=== PATIENT | male | born 1955 | race Two or more races ===

== ENCOUNTER → 2019-02-13 | Outpatient (CLI) | payer SELFPAY ==
[2019-02-14 17:58] LABS: Campylobacter Sp Not Detected (NOT DETECT)
[2019-02-14 17:59] LABS: Adenovirus F 40/41 Not Detected (NOT DETECT); Astrovirus Not Detected (NOT DETECT); Cryptosporidium Not Detected (NOT DETECT); Cyclospora Cayetanensis Not Detected (NOT DETECT); E. Coli O157 Not Detected (NOT DETECT); Entamoeba Histolytica Not Detected (NOT DETECT); Enteroaggregative E. coli-EAEC Not Detected (NOT DETECT); Enteropathogenic E. coli-EPEC Not Detected (NOT DETECT); Enterotoxigenic E. coli-ETEC Not Detected (NOT DETECT); Giardia Lamblia Not Detected (NOT DETECT); Norovirus GI/GII Not Detected (NOT DETECT); Plesiomonas Shigelloides Not Detected (NOT DETECT); Rotavirus A Not Detected (NOT DETECT); Salmonella Sp Not Detected (NOT DETECT); Sapovirus Not Detected (NOT DETECT); Shiga Toxin-prod E. coli-STEC Not Detected (NOT DETECT); Shigella/Enteroin E. coli-EIEC Not Detected (NOT DETECT); Vibrio Cholerae Not Detected (NOT DETECT); Vibrio Sp Not Detected (NOT DETECT); Yersinia Enterocolitica Not Detected (NOT DETECT)
== END | disposition home or self-care (01) ==
LOC: LAB 08:00 → LAB SHORT 08:00
PROVIDERS: Emergency Medicine
DX: R19.7 Diarrhea, unspecified (principal)
CPT/HCPCS: 0097U

== ENCOUNTER 2019-03-25 15:39 | Emergency (ER) | payer BC ==
[~2019-03-25] VITALS: Ht 175.3 cm; Wt 89.4 kg
[2019-03-25] MEDS ORDERED: METF500 PO (15:46)
[2019-03-25] MEDS ORDERED: GABA800 PO (15:46)
[2019-03-25] MEDS ORDERED: WARF5 PO (15:47)
[2019-03-25] MEDS ORDERED: WARF7.5 PO (15:47)
[2019-03-25] MEDS ORDERED: Esgic Tablet1 EACH (15:48)
[2019-03-25] MEDS ORDERED: Prevacid Soluta30 MG PO (15:48)
[2019-03-25] MEDS ORDERED: PRAM.5 PO (15:48)
[2019-03-25] MEDS ORDERED: ATOR10 PO (15:48)
[2019-03-25] MEDS ORDERED: GEMF600 PO (15:48)
[2019-03-25] MEDS ORDERED: AMLO10 PO (15:48)
[2019-03-25] MEDS ORDERED: BUTONI (15:49)
[2019-03-25 16:23] LABS: International Normalized Ratio 2.21; Prothrombin Time Results 21.8 Sec (9.7-11.5)
== END 2019-03-25 18:23 | disposition home or self-care (01) ==
LOC: ER 15:39
PROVIDERS: Physician Assistant
DX: S61.211A Laceration without foreign body of left index finger without damage to nail, initial encounter (principal); I10 Essential (primary) hypertension; E11.9 Type 2 diabetes mellitus without complications; K21.9 Gastro-esophageal reflux disease without esophagitis; F17.200 Nicotine dependence, unspecified, uncomplicated; Z86.711 Personal history of pulmonary embolism; Z88.1 Allergy status to other antibiotic agents; Z79.899 Other long term (current) drug therapy; Z79.84 Long term (current) use of oral hypoglycemic drugs; Z79.01 Long term (current) use of anticoagulants; W27.0XXA Contact with workbench tool, initial encounter
CPT/HCPCS: 12001; 36415; 73140; 85610; 99283-25

== ENCOUNTER 2019-05-12 12:42 | Emergency (ER) | payer MEDICARE ==
[~2019-05-12] VITALS: Ht 175.3 cm; Wt 88.0 kg
[~2019-05-12 12:42] MED LIST: AMLO10 PO; ATOR20 PO; BUTONI; Esgic Tablet1 EACH PO; GABA800 PO; GEMF600 PO; METF500 PO; Mirapex1 MG PO; Prevacid Soluta30 MG PO; WARF5 PO; WARF7.5 PO
[2019-05-12 13:01] LABS: BASOPHILS ABSOLUTE AUTO 0.05 K/mm3 (0.00-0.23); BASOPHILS PERCENT AUTO 1 % (0-2); EOSINOPHILS ABSOLUTE AUTO 0.18 K/mm3 (0.00-0.68); EOSINOPHILS PERCENT AUTO 3 % (0-6); Hematocrit 47.1 % (37.0-53.0); Hemoglobin 16.1 g/dL (13.5-17.5); IMMATURE GRAN ABSOLUTE AUTO 0.02 K/mm3 (0.00-0.10); IMMATURE GRAN PERCENT AUTO 0 % (0-1); LYMPHOCYTES ABSOLUTE AUTO 1.76 K/mm3 (0.84-5.20); LYMPHOCYTES PERCENT AUTO 27 % (21-46); MONOCYTES ABSOLUTE AUTO 0.51 K/mm3 (0.16-1.47); MONOCYTES PERCENT AUTO 8 % (4-13); Mean Corpuscular HGB 33.8 pg (26.0-34.0); Mean Corpuscular HGB Conc 34.2 g/dL (31.5-36.5); Mean Corpuscular Volume 99 fL (80-100); Mean Platelet Volume 9.8 fL (9.1-12.4); NEUTROPHILS ABSOLUTE AUTO 3.97 K/mm3 (1.96-9.15); NEUTROPHILS PERCENT AUTO 61 % (41-73); Platelet Count 190 K/mm3 (150-400); RDW Coefficient Variation 13.2 % (11.7-14.2); RDW Standard Deviation 48.5 fL (35.1-46.3); Red Blood Cell Count 4.76 M/mm3 (4.30-5.90); White Blood Cell Count 6.49 K/mm3 (4.00-11.30)
[2019-05-12 13:15] LABS: Alanine Aminotransfer (ALT/SGP 45 U/L (12-78); Albumin, Blood 3.5 g/dL (3.4-5.0); Albumin/Globulin Ratio 0.9 (0.8-1.8); Alk Phos 131 U/L (50-136); Anion Gap 8 mmol/L (6-16); Aspartate Aminotrans (AST/SGOT 25 U/L (12-37); Bilirubin, Total 0.3 mg/dL (0.1-1.0); Blood Urea Nitrogen 15 mg/dL (8-24); CO2, Blood 24 mmol/L (21-32); Calcium, Blood 8.7 mg/dL (8.5-10.1); Chloride, Blood 111 mmol/L (98-108); Creatinine, Blood 0.88 mg/dL (0.60-1.20); Glomerular Filtration Rate >60 (60-); Glucose, Blood 149 mg/dL (70-99); Potassium, Blood 3.8 mmol/L (3.5-5.5); Sodium, Blood 143 mmol/L (136-145); Total Protein, Blood 7.5 g/dL (6.4-8.2); Troponin I <0.015 ng/mL (0.000-0.040)
[2019-05-16] MEDS ORDERED: PRAMIPEXOLE DIHY1 M1 PO (13:55)
[2019-05-18] MEDS ORDERED: BASAGLAR K100 UNIT/1 SC (12:56)
[2019-05-18] MEDS ORDERED: LOSA25 PO (12:57)
== END 2019-05-12 17:25 | disposition home or self-care (01) ==
LOC: ER 12:42
PROVIDERS: Emergency Medicine
DX: R56.9 Unspecified convulsions (principal); E11.9 Type 2 diabetes mellitus without complications; Z88.1 Allergy status to other antibiotic agents; Z79.899 Other long term (current) drug therapy; Z87.891 Personal history of nicotine dependence; Z86.711 Personal history of pulmonary embolism
CPT/HCPCS: 36415; 70450; 71046; 80053; 84484; 85025; 93005; 93010; 99285-25

== ENCOUNTER → 2020-10-16 | Outpatient (CLI) | payer MEDICARE ==
[~2020-10-16] MED LIST changes: +BASAGLAR K100 UNIT/1 SC; +LOSA25 PO; +PRAMIPEXOLE DIHY1 M1 PO
== END | disposition home or self-care (01) ==
LOC: LAB SHORT 12:00
DX: N40.1 Benign prostatic hyperplasia with lower urinary tract symptoms (principal)
CPT/HCPCS: 87086

== ENCOUNTER 2020-12-24 08:57 | Emergency (ER) | payer MEDICARE ==
[~2020-12-24] VITALS: Ht 175.3 cm; Wt 88.0 kg
[2020-12-24] MEDS ORDERED: TAMS.4ER PO (11:02)
[2020-12-24] MEDS ORDERED: AMOX875 PO (11:02)
[2020-12-24] MEDS ORDERED: GABA400 PO (11:02)
[2020-12-24] MEDS ORDERED: OMEP20ER PO (11:02)
[2020-12-24] MEDS ORDERED: METF500 PO (11:03)
[2020-12-24] MEDS ORDERED: GEMF600 PO (11:03)
[2020-12-24] MEDS ORDERED: ATOR20 (11:03)
[2020-12-24] MEDS ORDERED: AMLO10 PO (11:04)
[2020-12-24] MEDS ORDERED: ZEBUTAL 50-3251 EAC1 (11:04)
[2020-12-24] MEDS ORDERED: PRAM.125 PO (11:04)
[2020-12-24] MEDS ORDERED: TRULICITY1.5 MG/0.1 (11:05)
[2020-12-24] MEDS ORDERED: LANS30EC PO (11:05)
[2020-12-24] MEDS ORDERED: BUTONI INH (11:05)
[2020-12-24] MEDS ORDERED: XARELTO20 MG PO (11:06)
[2020-12-24] MEDS ORDERED: INSULANI SC (11:06)
[2020-12-24 11:35] LABS: BASOPHILS ABSOLUTE AUTO 0.03 K/mm3 (0.00-0.23); BASOPHILS PERCENT AUTO 1 % (0-2); EOSINOPHILS ABSOLUTE AUTO 0.11 K/mm3 (0.00-0.68); EOSINOPHILS PERCENT AUTO 2 % (0-6); Hematocrit 41.2 % (37.0-53.0); Hemoglobin 14.1 g/dL (13.5-17.5); IMMATURE GRAN ABSOLUTE AUTO 0.02 K/mm3 (0.00-0.10); IMMATURE GRAN PERCENT AUTO 0 % (0-1); LYMPHOCYTES ABSOLUTE AUTO 1.43 K/mm3 (0.84-5.20); LYMPHOCYTES PERCENT AUTO 27 % (21-46); MONOCYTES ABSOLUTE AUTO 0.33 K/mm3 (0.16-1.47); MONOCYTES PERCENT AUTO 6 % (4-13); Mean Corpuscular HGB 32.3 pg (26.0-34.0); Mean Corpuscular HGB Conc 34.2 g/dL (31.5-36.5); Mean Corpuscular Volume 95 fL (80-100); Mean Platelet Volume 10.8 fL (9.1-12.4); NEUTROPHILS ABSOLUTE AUTO 3.39 K/mm3 (1.96-9.15); NEUTROPHILS PERCENT AUTO 64 % (41-73); Platelet Count 131 K/mm3 (150-400); RDW Coefficient Variation 12.7 % (11.7-14.2); RDW Standard Deviation 44.4 fL (35.1-46.3); Red Blood Cell Count 4.36 M/mm3 (4.30-5.90); White Blood Cell Count 5.31 K/mm3 (4.00-11.30)
[2020-12-24 11:44] LABS: Alanine Aminotransfer (ALT/SGP 182 U/L (12-78); Albumin, Blood 3.1 g/dL (3.4-5.0); Albumin/Globulin Ratio 0.7 (0.8-1.8); Alk Phos 144 U/L (50-136); Anion Gap 9 mmol/L (6-16); Aspartate Aminotrans (AST/SGOT 131 U/L (12-37); Beta-hydroxybutyrate 4.9 mg/dL (0.2-2.8); Bilirubin, Total 0.7 mg/dL (0.1-1.0); Blood Urea Nitrogen 18 mg/dL (8-24); Bun/Creatinine Ratio 18.3 (12.0-20.0); CO2, Blood 22 mmol/L (21-32); Calcium, Blood 8.9 mg/dL (8.5-10.1); Chloride, Blood 102 mmol/L (98-108); Creatinine, Blood 0.99 mg/dL (0.60-1.20); Globulin, Blood 4.5 g/dL (2.2-4.0); Glomerular Filtration Rate >60 (60-); Glucose, Blood 429 mg/dL (70-99); Sodium, Blood 133 mmol/L (136-145); Total Protein, Blood 7.6 g/dL (6.4-8.2)
[2020-12-24 12:52] LABS: Source, Urine Clean Catch
[2020-12-24 13:12] LABS: Appearance, Urine Clear (Clear); Bilirubin, Urine Neg (Neg); Blood, Urine Neg (Neg); Color, Urine Yellow (P-Yellow); Glucose Qualitative, Urine 4+ (Neg); Ketones, Urine Neg (Neg); Leukocyte Esterase, Urine Neg (Neg); Nitrite, Urine Neg (Neg); Protein, Urine Neg (Neg); Specific Gravity, Urine 1.015 (1.003-1.022); Urobilinogen, Urine NORM (Normal)
== END 2020-12-24 13:30 | disposition home or self-care (01) ==
LOC: ER 08:57
PROVIDERS: Physician Assistant
DX: E11.65 Type 2 diabetes mellitus with hyperglycemia (principal); I10 Essential (primary) hypertension; F17.200 Nicotine dependence, unspecified, uncomplicated; K21.9 Gastro-esophageal reflux disease without esophagitis; Z79.4 Long term (current) use of insulin; Z79.899 Other long term (current) drug therapy; Z88.1 Allergy status to other antibiotic agents
CPT/HCPCS: 80053; 81003; 82010; 82947; 85025; 93005; 93010; 96360; 99284-25; J1815; J7030

== ENCOUNTER 2021-05-11 07:42 | Emergency (ER) | payer MEDICARE ==
[~2021-05-11] VITALS: Ht 175.3 cm; Wt 77.1 kg
[~2021-05-11 07:42] MED LIST changes: +AMOX875 PO; +ATOR20; +BUTONI INH; +GABA400 PO; +INSULANI SC; +LANS30EC PO; +OMEP20ER PO; +PRAM.125 PO; +TAMS.4ER PO; +TRULICITY1.5 MG/0.1; +XARELTO20 MG PO; +ZEBUTAL 50-3251 EAC1
[2021-05-11] MEDS ORDERED: HUMALOG KW100 UNIT/1 (07:58)
[2021-05-11] MEDS ORDERED: OZEMPIC0.25 MG/0. (08:00)
[2021-05-11 08:10] LABS: BASOPHILS ABSOLUTE AUTO 0.04 K/mm3 (0.00-0.23); BASOPHILS PERCENT AUTO 1 % (0-2); EOSINOPHILS ABSOLUTE AUTO 0.03 K/mm3 (0.00-0.68); EOSINOPHILS PERCENT AUTO 1 % (0-6); Hematocrit 41.3 % (37.0-53.0); IMMATURE GRAN ABSOLUTE AUTO 0.04 K/mm3 (0.00-0.10); IMMATURE GRAN PERCENT AUTO 1 % (0-1); LYMPHOCYTES ABSOLUTE AUTO 0.75 K/mm3 (0.84-5.20); LYMPHOCYTES PERCENT AUTO 12 % (21-46); MONOCYTES ABSOLUTE AUTO 0.46 K/mm3 (0.16-1.47); MONOCYTES PERCENT AUTO 7 % (4-13); Mean Corpuscular HGB 32.5 pg (26.0-34.0); Mean Corpuscular HGB Conc 33.9 g/dL (31.5-36.5); Mean Corpuscular Volume 96 fL (80-100); Mean Platelet Volume 10.3 fL (9.1-12.4); NEUTROPHILS PERCENT AUTO 80 % (41-73); Platelet Count 160 K/mm3 (150-400); RDW Coefficient Variation 13.2 % (11.7-14.2); RDW Standard Deviation 47.2 fL (35.1-46.3); Red Blood Cell Count 4.31 M/mm3 (4.30-5.90); White Blood Cell Count 6.52 K/mm3 (4.00-11.30)
[2021-05-11 08:32] LABS: Alanine Aminotransfer (ALT/SGP 89 U/L (12-78); Albumin, Blood 2.6 g/dL (3.4-5.0); Albumin/Globulin Ratio 0.4 (0.8-1.8); Alk Phos 112 U/L (50-136); Anion Gap 8 mmol/L (6-16); Aspartate Aminotrans (AST/SGOT 90 U/L (12-37); Bilirubin, Total 1.3 mg/dL (0.1-1.0); Blood Urea Nitrogen 22 mg/dL (8-24); Bun/Creatinine Ratio 18.3 (12.0-20.0); CO2, Blood 25 mmol/L (21-32); Calcium, Blood 9.3 mg/dL (8.5-10.1); Chloride, Blood 101 mmol/L (98-108); Globulin, Blood 6.6 g/dL (2.2-4.0); Glomerular Filtration Rate >60 (60-); Glucose, Blood 159 mg/dL (70-99); Potassium, Blood 3.8 mmol/L (3.5-5.5); Sodium, Blood 134 mmol/L (136-145); Total Protein, Blood 9.2 g/dL (6.4-8.2)
[2021-05-11 10:33] LABS: Source, Urine Clean Catch
[2021-05-11 10:36] LABS: Appearance, Urine Clear (Clear); Bilirubin, Urine Neg (Neg); Blood, Urine 2+ (Neg); Color, Urine Yellow (P-Yellow); Glucose Qualitative, Urine Neg (Neg); Ketones, Urine Neg (Neg); Leukocyte Esterase, Urine 1+ (Neg); Nitrite, Urine Neg (Neg); Protein, Urine 2+ (Neg); Urobilinogen, Urine NORM (Normal)
[2021-05-11] MEDS ORDERED: REGLAN PO (10:45)
[2021-05-11 10:49] LABS: Bacteria Few /hpf; Squamous Epithelial Cells Rare /hpf (Few)
== END 2021-05-11 11:00 | disposition home or self-care (01) ==
LOC: ER 07:42
PROVIDERS: Emergency Medicine
DX: R11.2 Nausea with vomiting, unspecified (principal); E11.43 Type 2 diabetes mellitus with diabetic autonomic (poly)neuropathy; K31.84 Gastroparesis; I10 Essential (primary) hypertension; K21.9 Gastro-esophageal reflux disease without esophagitis; Z88.1 Allergy status to other antibiotic agents; Z79.899 Other long term (current) drug therapy; Z79.4 Long term (current) use of insulin; Z79.01 Long term (current) use of anticoagulants; Z86.711 Personal history of pulmonary embolism; Z87.891 Personal history of nicotine dependence
CPT/HCPCS: 36415; 80053; 81001; 82947; 83690; 85025; 87077; 87086; 87147; 87186; J1200; J2765; J7030

== ENCOUNTER 2021-05-26 18:00 | Inpatient (IN) | payer MEDICARE ==
[~2021-05-26] VITALS: Ht 175.3 cm; Wt 83.5 kg
[~2021-05-26 18:00] MED LIST changes: -ATOR20; -BUTONI INH; +HUMALOG KW100 UNIT/1; +HYDR1TAB94 PO; +METF500C PO; +Monodox100 MG PO; +NORTRIPTYLINE H10 M1 PO; +ONDA4ODT MM; +OZEMPIC0.25 MG/0. SC; +PHENERGAN25 MG PR; -PRAM.125 PO; +REGLAN PO
[2021-05-26 20:31] LABS: Source, Urine Clean Catch
[2021-05-26 20:33] LABS: Bilirubin, Urine Neg (Neg); Blood, Urine 5+ (Neg); Glucose Qualitative, Urine 2+ (Neg); Ketones, Urine Neg (Neg); Leukocyte Esterase, Urine Neg (Neg); Nitrite, Urine Neg (Neg); Protein, Urine 1+ (Neg); Urobilinogen, Urine NORM (Normal)
[2021-05-26 20:44] LABS: Appearance, Urine Hazy (Clear); Bacteria Not Seen /hpf; Color, Urine Yellow (P-Yellow); Red Blood Cells, Urine TNTC /hpf (0-2); Squamous Epithelial Cells Rare /hpf (Few); White Blood Cells, Urine Rare /hpf (0-5)
[2021-05-26 21:55] LABS: U Amphetamine Screen Not Detected; U Barbituate Screen DETECTED; U Benzodiazapine Screen Not Detected; U Buprenorphine Screen Not Detected; U Cannabinoids Screen Not Detected; U Cocaine Screen Not Detected; U Methadone Screen Not Detected; U Methamphetamine Screen Not Detected; U Opiates Screen DETECTED; U Oxycodone Screen Not Detected; U Phencyclidine Screen Not Detected; U Propoxyphene Screen Not Detected
[2021-05-26 22:32] LABS: CPK Creatine Kinase 36 U/L (39-308); Creatine Kinase MB 1.1 ng/mL (0.0-3.6); Creatine Kinase MB Index 3.1 (0.0-4.0); Troponin I <0.015 ng/mL (0.000-0.040)
[2021-05-27 04:53] LABS: BASOPHILS ABSOLUTE AUTO 0.03 K/mm3 (0.00-0.23); BASOPHILS PERCENT AUTO 1 % (0-2); EOSINOPHILS ABSOLUTE AUTO 0.07 K/mm3 (0.00-0.68); EOSINOPHILS PERCENT AUTO 1 % (0-6); Hematocrit 28.2 % (37.0-53.0); IMMATURE GRAN ABSOLUTE AUTO 0.03 K/mm3 (0.00-0.10); IMMATURE GRAN PERCENT AUTO 1 % (0-1); LYMPHOCYTES ABSOLUTE AUTO 0.98 K/mm3 (0.84-5.20); LYMPHOCYTES PERCENT AUTO 15 % (21-46); MONOCYTES ABSOLUTE AUTO 0.43 K/mm3 (0.16-1.47); MONOCYTES PERCENT AUTO 7 % (4-13); Mean Corpuscular HGB 31.7 pg (26.0-34.0); Mean Corpuscular HGB Conc 31.9 g/dL (31.5-36.5); Mean Corpuscular Volume 99 fL (80-100); Mean Platelet Volume 9.9 fL (9.1-12.4); NEUTROPHILS ABSOLUTE AUTO 4.81 K/mm3 (1.96-9.15); NEUTROPHILS PERCENT AUTO 76 % (41-73); Platelet Count 239 K/mm3 (150-400); RDW Coefficient Variation 14.1 % (11.7-14.2); RDW Standard Deviation 51.1 fL (35.1-46.3); Red Blood Cell Count 2.84 M/mm3 (4.30-5.90); White Blood Cell Count 6.35 K/mm3 (4.00-11.30)
[2021-05-27 05:22] LABS: Anion Gap 6 mmol/L (6-16); Blood Urea Nitrogen 16 mg/dL (8-24); Bun/Creatinine Ratio 15.8 (12.0-20.0); CO2, Blood 25 mmol/L (21-32); Calcium, Blood 8.4 mg/dL (8.5-10.1); Chloride, Blood 101 mmol/L (98-108); Creatinine, Blood 1.01 mg/dL (0.60-1.20); Glomerular Filtration Rate >60 (60-); Glucose, Blood 232 mg/dL (70-99); Potassium, Blood 3.9 mmol/L (3.5-5.5); Sodium, Blood 132 mmol/L (136-145)
--- NOTE | 2021-05-27 06:31 | NUR ---
THIS VISIT C/O RIGHT SIDED CHEST, SHOULDER AND CLAVICLE PAIN FOR 6 DAYS. WENT TO PCP TODAY AND WAS TOLD TO COME HERE "FOR A SERIOUS INFECTION". HX: FRACTURE RIGHT CLAVICLE, N V D (ALL 3 FOR 1 YEAR), GERD, TBI, HTN, SEIZURES, DM2 AND GASTROPARESIS. 3 SPINAL FUSIONS IN PAST. BLE DISCOLORATION LIGHT BROWN. CT CHEST SHOWED 4.2CM FLUID AT RIGHT PEC WITH CONCERNS FOR INFECTION. HAS ABSCESS DRAINAGE AND BIOPSY SCHEDULED FOR TODAY.
--- NOTE | 2021-05-27 10:40 | NUR ---
RADHA saba handoff of patient care from RADHA Mancia this morning at 0645. Patient was alert and orient, lying in bed but not asleep. Patient appeared in no distress.
[2021-05-27] MEDS ORDERED: PRAMIPEXOLE DIHY1 M1 PO ×2 (12:18)
[2021-05-27] MEDS ORDERED: LOSARTAN POTASS25 M2 PO ×2 (12:18)
[2021-05-27 12:24] LABS: Anti-Xa UFH, PHA Monitoring <0.10 IU/mL; International Normalized Ratio 1.24; Prothrombin Time Results 12.8 Sec (9.7-11.5)
[2021-05-27 15:39] LABS: Protein, Body Fluid 5.3 g/dL
[2021-05-27 17:03] LABS: Appearance, Body Fluid Turbid (Clear)
[2021-05-27 17:04] LABS: Automated BF WBC Count >200.000 K/mm3 (0-999); Body Fluid WBC Count 200001 /mm3 (0-999)
[2021-05-27 17:08] LABS: RBC Count, Body Fluid 261000 /mm3 (0-0)
[2021-05-27 17:09] LABS: Automated BF RBC Count 0.261 M/mm3 (0-0)
[2021-05-27 17:52] LABS: Total Cell Count, Body Fluid 100
--- NOTE | 2021-05-27 18:36 | NUR ---
Patient was alert and orient. He was able to express his needs. He was admitted for abscess of the Right clavicle/shoulder. Patient has been having N/V/D for over quite some time but just noticed the abscess over a week ago. Patient had an I&D this afternoon, dressing intact, and a drain in place. Patient had a shower, his temp was up to 102 and he did recv Tylenol po prn. Patient continued on ABX and now has Heparin drip to replace Xarelto. Cont to monitor
[2021-05-27 23:42] LABS: Vancomycin, Trough 13.5 ug/mL (5.0-10.0)
--- NOTE | 2021-05-27 23:54 | NUR ---
INCREASED HEPARIN GTT TO 20 UN/KG/HR (33.2 ML/HR) PER PHARMACY MANAGEMENT.
--- NOTE | 2021-05-28 08:04 | NUR ---
SUMMARY: PT A/OX4, IS PLEASANT AND COOPERATIVE W/CARE AND CALLS APPROPRIATELY TO SPECIFY NEED. HE'S SBA OOB AND USES URINAL INDEPENDENTLY. STAFF UNABLE TO COLLECT STOOL SPECIMEN D/T NO BM THIS SHIFT. DRAIN PRESENT TO R.CW S/P I&D OF R.PECTORAL ABSCESS, 4O MLS PINK/BROWN OUTPUT THIS SHIFT. IV ABX RECIEVED T/O NOCTE THEN IV SL. PAIN RADIATES FROM CHEST TO BACK AND OCC INTO HEAD/NECK, CHRONIC COUGH EXACERBATES IT. TORADOL AND TYLENOL RECIEVED PRN T/O NOCTE FOR TOLERABLE RELIEF. HE ALSO HAD LOW GRADE TEMP>100 W/TYLENOL EFFECTIVE AT REDUCING IT. PT BREATHS SHALLOW AND TACHY AT TIMES R/T PAIN BUT DENIES SOB OR DSYPNEA, SPO2 WNL. HEPARIN GTT BEING MANAGED BY PHARMACY FOR HX PE, RATE INCREASED TO 20 UN/KG/HR (33.2 ML/HR) THIS SHIFT. NO ACUTE CHANGES, VSS AND AFEBRILE. REPORT PROVIDED TO DAY RN.
[2021-05-28 13:38] LABS: International Normalized Ratio 1.26
--- NOTE | 2021-05-28 17:06 | NUR ---
PT IS A/OX3, PLEASANT AND COOPERATIVE. THE PT IS UP WITH MINIMAL ASSIST TO THE BATHROOM. THE PT REPORTED HAVEING A LARGE BM TODAY. THE ORDERED STOOL SAMPLE WAS NOT COLLECTED. THE PT REPORTED THAT THERE WAS NO BLOOD SEEN WITH THE BM. THE PT APPEARS TO BE BREATHING EASILY ON RA AT THIS TIME. THE PT WAS MEDICATED FOR PAIN X2 SO FAR TODAY. PTS RIGHT SHOULDER DRAIN HAS A SMALL AMOUNT OF DARK BROWN DRAINAGE TODAY. CALL LIGHT IN REACH. WILL CONTINUE TO MONITOR AND ASSESS FOR CHANGES
--- NOTE | 2021-05-28 19:24 | NUR ---
1730 PT REPORTED SHAKES AND CHILLS TEMP TAKEN WITH ORALY 101.4, ICE PACKS PLACED UNDER PATIENTS AXILLARIES AND BEHIND THE NECK. TYLENOL GIVEN
--- NOTE | 2021-05-29 06:30 | NUR ---
SHIFT SUMMARY PATIENT ALERT AND ORIENTED. MEDICATED PER EMAR FOR PAIN. NO ACUTE ISSUES NOTED OVERNIGHT. BED IN LOWEST POSITION WITH WHEELS LOCKED. CALL LIGHT WITHIN REACH. REPORT GIVEN TO ONCOMING RN.
[2021-05-29 09:55] LABS: Stool Occult Bld Immuno 1 Negative (NEGATIVE)
[2021-05-29 11:07] LABS: Vancomycin, Trough 18.3 ug/mL (5.0-10.0)
--- NOTE | 2021-05-29 11:11 | NUR ---
NOTIFIED PHARMACIST SARAHO TROUGH IN COMPUTER
--- NOTE | 2021-05-29 16:35 | NUR ---
Initial Interview with [facility] Community Threader 1. Who did you speak with? Spoke with patient 2. What is the patient's prior level of functions? Patient lives independently with daughter Jany and son-in-law. They live on the same property but in separate dwellings. Patient is able to complete ADL's without assistance. Had some knee/joint problems in the past, but still able to move independently without assistance. There are no stairs in the home. Patient had an accident at work back in the 90s and was placed on SSI. 3. 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 Family assists with transportation needs. 4. Does patient still drive? No 5. POA/PCP/NOK: NOK: Jayn Daughter [phone]/PCP [facility] CHRISTOPHER Wheat 6. Discharge goals: Home with antibiotics po/patient has no preference for home health if needed. -Medication Management: self-management -Preferred Pharmacy: [facility] -Housekeeping need: patient performs cooking and cleaning at his residence 7. List barriers to discharge: None known at this time 8. Discharge Plan: Home/TBD 9. PCP Follow up appointment: Will be scheduled within seven calendar days of discharge 10. Other Notes: patient is a and has no service connected disability, but encouraged to apply for benefits. Patient served for three years.
--- NOTE | 2021-05-29 16:44 | NUR ---
ALERT. ORIENTED. HEPARIN INFUSING IN POWERGLIDE LEFT UPPER ARM HAS IVC FILTER AND HX OF P.E. OFF P.O. MEDS DUE TO I&D ABSCESS RT SHLDER WITH DRAIN PLACED. RT F.A APPEARS SLIGHTLY SWOLLEN. IV RT SHLDR NOT USED. MEDICATED FOR PAIN WITH PATIENT ABLE TO SLEEP. UNLABORED RESPIRATIONS. AMBULATORY IN ROOM WITH STANDBY ASSIST. PINKISH CLOUDY DRAINAGE FROM DRAIN. TM
--- NOTE | 2021-05-29 18:35 | NUR ---
TALKED TO ABOUT ABSCESS DRAINAGE ONLY 20 ML THIS SHIFT. RT ARM LOOKS LITTLE SWOLLEN- LOOKS LITTLE LARGER MORGAN LEFT. NOW PATIENT HAS CRAMPS RT HAND WHERE RT THUMB IS CURLED UP AND HE CAN NOT STRAIGHTEN IT. CAN ORDER CYCLOBENZAPRINE 5 MG QD PRN. NO FEVERS. MD TO MAYBE ORDER RADIOLOGY TOMORROW WHEN HE REEVALS.
--- NOTE | 2021-05-30 15:15 | NUR ---
PT APPEARS SHAKEY PT APPEARS SHAKEY AND IS GRASPING THROAT WITH BOTH HANDS. BLOOD GLUCOSE AND VITAL SIGNS ARE ASSESSED. 2 L NC O2 APPLIED FOR COMFORT. DR. MENDEZ CONTACTED AND ORDERED PRN ATIVAN AND PRN ALBUTEROL. 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 PLAN TO MEDICATE PER EMAR AND CONTINUE TO MONITOR.
[2021-05-30 15:34] LABS: Hematocrit 27.6 % (37.0-53.0); Hemoglobin 8.8 g/dL (13.5-17.5); Platelet Count 295 K/mm3 (150-400)
--- NOTE | 2021-05-30 17:35 | NUR ---
SHIFT SUMMARY PT A&O X4 AND IN PLEASENT MOOD T/O SHIFT. PT DID HAVE SHAKING EPISODE DURING SHIFT, PLEASE SEE NOTE. PT MEDICATED PER EMAR FOR ANXIETY, PAIN, AND CONSTIPATION. HEPERIN DRIP CURRENTLY RUNNING. R UPPER CHEST DRAIN PRODUCING KHALIF COLORED FLUID. CALL LIGHT W/IN REACH.
[2021-05-30 23:05] LABS: Vancomycin, Trough 21.9 ug/mL (5.0-10.0)
[2021-05-31 04:55] LABS: Hematocrit 25.8 % (37.0-53.0); Hemoglobin 8.3 g/dL (13.5-17.5); Mean Platelet Volume 9.8 fL (9.1-12.4); Platelet Count 289 K/mm3 (150-400)
--- NOTE | 2021-05-31 06:08 | NUR ---
SHIFT SUMMARY: PT IS A/OX4. HEP GTT IS RUNNING WITH NO NEW CHANGES. THE PT'S VANCO TROUGH WAS 21.9; PHARMACY WAS NOTIFIED AND VANCO WAS ADJUSTED. PT HAS BEEN INDEPENDENT IN THE ROOM, BUT WILL CALL FOR NEEDS. DRAIN TO RT CX WALL IS PUTTING OUT SMALL AMOUNTS OF FLUID. PT DID HAVE A SMALL BM THIS NOC SHIFT WELL. WE'LL CONTINUE TO MONITOR THE REMAINDER OF THE SHIFT.
--- NOTE | 2021-05-31 16:12 | NUR ---
SHIFT SUMMARY PT A/O X4; PLEASANT AND COOPERATIVE WITH CARE. POD #4 FOR I&D OF R CHEST WALL ABSCESS AND URESIL DRAIN PLACEMENT. DRAIN PUTTING OUT SMALL AMOUNT OF SS FLUID. HEPARIN GT RUNNING WITH NO CHANGES THIS SHIFT. NO C/O PAIN AND THE PT REPORTS "FEELING MUCH BETTER" TODAY. DIET CHANGED TO MECH SOFT WITH MEDS WHOLE IN APPLESAUCE. VSS. WILL REPORT TO BRENDA GARCIA.
[2021-05-31 23:43] LABS: Vancomycin, Trough 14.1 ug/mL (5.0-10.0)
[2021-06-01 05:41] LABS: BASOPHILS ABSOLUTE AUTO 0.01 K/mm3 (0.00-0.23); BASOPHILS PERCENT AUTO 0 % (0-2); EOSINOPHILS ABSOLUTE AUTO 0.08 K/mm3 (0.00-0.68); EOSINOPHILS PERCENT AUTO 1 % (0-6); Hematocrit 22.9 % (37.0-53.0); Hemoglobin 7.3 g/dL (13.5-17.5); IMMATURE GRAN ABSOLUTE AUTO 0.05 K/mm3 (0.00-0.10); IMMATURE GRAN PERCENT AUTO 1 % (0-1); LYMPHOCYTES ABSOLUTE AUTO 1.28 K/mm3 (0.84-5.20); LYMPHOCYTES PERCENT AUTO 21 % (21-46); MONOCYTES ABSOLUTE AUTO 0.38 K/mm3 (0.16-1.47); MONOCYTES PERCENT AUTO 6 % (4-13); Mean Corpuscular HGB 32.2 pg (26.0-34.0); Mean Corpuscular HGB Conc 31.9 g/dL (31.5-36.5); Mean Corpuscular Volume 101 fL (80-100); Mean Platelet Volume 10.1 fL (9.1-12.4); NEUTROPHILS PERCENT AUTO 71 % (41-73); Platelet Count 273 K/mm3 (150-400); RDW Coefficient Variation 14.9 % (11.7-14.2); RDW Standard Deviation 54.7 fL (35.1-46.3); Red Blood Cell Count 2.27 M/mm3 (4.30-5.90)
--- NOTE | 2021-06-01 06:36 | NUR ---
PATIENT IS DAY 4 POST I&D FOR ABSCESS TO RIGHT CHEST. URESIL DRAIN IN PLACE AND PATENT. STILL HAVING COUGHING FITS. RATES THROAT PAIN AT 10/10 ALL THE TIME. HEPARIN DRIP RUNNING AT 30 UNITS/KG/HR WITH MORNING ANTI-XA LAB AT 0.35 IN RANGE. HGB HAS DROPPED TO 7.3, BUT NO COMPLAINTS ON HIS END OR FEELING ANY DIFFERENT.
[2021-06-01 06:44] LABS: Anion Gap 6 mmol/L (6-16); Blood Urea Nitrogen 19 mg/dL (8-24); CO2, Blood 23 mmol/L (21-32); Calcium, Blood 7.5 mg/dL (8.5-10.1); Chloride, Blood 102 mmol/L (98-108); Creatinine, Blood 1.19 mg/dL (0.60-1.20); Glomerular Filtration Rate >60 (60-); Glucose, Blood 354 mg/dL (70-99); Potassium, Blood 4.7 mmol/L (3.5-5.5); Sodium, Blood 131 mmol/L (136-145)
--- NOTE | 2021-06-01 17:30 | NUR ---
SHIFT SUMMARY 65 Y MALE ADMITTED WITH SEVER SEPSIS R/T R CHEST WALL ABCESS. PT S/P I&D OF ABCESS WITH UROSEAL DRAIN IN PLACE DRAINING MINIMAL DARK BROWN PURELENT SEROSANGUINEOUS FLUID. PT IS A&O, PLEASANT AND COOPERATIVE WITH CARE. PT C/O 10/10 PAIN "ALWAYS" WITH LITTLE RELIEF WITH MEDICATIONS. PT DOES HAVE FREQUENT DRY COUGH WITH THROAT SPASMS, PT REPORTS HE BELIEVES THE FLEXERIL IS HELPING WITH THE THROAT SPASM AND COUGH. PT'S BLOOD SUGARS ELEVATED AND NEEDING S/S COVERAGE AC/HS. HEPARING GTT RUNNING AT 30UNITS/KG/HR AND BEING MONITORED AND MANAGED BY PHARMACY. PT HAD HGB OF 7.3 THIS AM AND WAS REPORTED TO MD, NO NEW ORDERS AT THIS TIME. PT TAKEN FOR CT THIS EVENING, RESULTS PENDING. PT IS HOPEFULL FOR D/C HOME TOMORROW. NO OTHER CHANGES TO REPORT THIS SHIFT
--- NOTE | 2021-06-01 18:02 | NUR ---
SHIFT SUMMARY 65 Y MALE ADMITTED WITH SEVER SEPSIS R/T R CHEST WALL ABCESS. PT S/P I&D OF ABCESS WITH URESIL DRAIN IN PLACE DRAINING MINIMAL DARK BROWN PURELENT SEROSANGUINEOUS FLUID. PT IS A&O, PLEASANT AND COOPERATIVE WITH CARE. PT C/O 10/10 PAIN "ALWAYS" WITH LITTLE RELIEF WITH MEDICATIONS. PT DOES HAVE FREQUENT DRY COUGH WITH THROAT SPASMS, PT REPORTS HE BELIEVES THE FLEXERIL IS HELPING WITH THE THROAT SPASM AND COUGH. PT'S BLOOD SUGARS ELEVATED AND NEEDING S/S COVERAGE AC/HS. HEPARING GTT RUNNING AT 30UNITS/KG/HR AND BEING MONITORED AND MANAGED BY PHARMACY. PT HAD HGB OF 7.3 THIS AM AND WAS REPORTED TO MD, NO NEW ORDERS AT THIS TIME. PT TAKEN FOR CT THIS EVENING, RESULTS PENDING. PT IS HOPEFULL FOR D/C HOME TOMORROW. NO OTHER CHANGES TO REPORT THIS SHIFT
[2021-06-02 05:43] LABS: Hematocrit 24.4 % (37.0-53.0); Hemoglobin 7.8 g/dL (13.5-17.5); Mean Platelet Volume 9.7 fL (9.1-12.4); Platelet Count 302 K/mm3 (150-400)
--- NOTE | 2021-06-02 06:20 | NUR ---
PATIENT ONLY HAD COMPLAINTS OF PAIN ONCE DURING SHIFT. HE CHOSE TO TAKE FLEXERIL OVER TORADOL, HE FEELS IT HELPS HIS THROAT MORE. HEPARIN STILL RUNNING AT 30U/KG/HR RATE, WHICH PHARMACY STATED TO KEEP IT AT THIS RATE THIS MORNING AT 0615. HGB WENT UP FROM 7.3 TO 7.8 . URASIL DRAIN IN PLACE PUTTING OUT 60ML SEROSANGUINOUS DRAINAGE.
[2021-06-02 11:55] LABS: Vancomycin, Trough 14.3 ug/mL (5.0-10.0)
--- NOTE | 2021-06-02 17:07 | NUR ---
SHIFT SUMMARY PATIENT DENIES PAIN, NAUSEA, AND SHORTNESS OF BREATH. PATIENT IS IND IN ROOM. NEW HEPARIN BAG HUNG WITH [address] WORKED WITH PATIENT. NEW ORDERS FOR ADA DIET AND MEDICATIONS GIVEN WHOLE WITH WATER. PATIENT VERY EXCITED ABOUT THIS CHANGE. PATIENT IS EATING AND DRINKING WELL. PATIENT IS PLEASANT AND COOPERATIVE WITH CARE.
--- NOTE | 2021-06-02 22:03 | NUR ---
NOTIFIED DR OF BS OF 361, PT GOT HUMALOG 10 UNITS, LONG ACTING WAS ALREADY INCREASED TO 30 UNITS, PT GOT THAT WELL. NO NEW ORDERS AT THIS TIME. DR LEPE WAS THE DR NOTIFIED.
--- NOTE | 2021-06-02 22:12 | NUR ---
192 PT LYING IN BED, REPORTS SORE THROAT OF 02/09, WILL CALL FOR MEDS, GIVE MEDS ORDERED AND EVAL FOR EFFECT. DRAIN TO R PECTORIAL, SITE C/D/I, MOD AMOUNT OF THIN MEDIUM RED FLUID IN BAG. PT DECLINED SCD'S AT THIS TIME. NO OTHER APPARENT SIGNS OF DISTRESS. CALL LIGHT IS IN REACH.
--- NOTE | 2021-06-02 23:55 | NUR ---
PT LYING IN BED, EYES CLOSED, APPEARS TO BE RESTING. BREATHING IS EVEN, UNLABORED. NO APPARENT SIGNS OF DISTRESS. CALL LIGHT IS IN REACH.
--- NOTE | 2021-06-03 01:28 | NUR ---
PT LYING IN BED, EYES CLOSED, APPEARS TO BE RESTING. BREATHING IS EVEN, UNLABORED. NO APPARENT SIGNS OF DISTRESS. CALL LIGHT IS IN REACH.
--- NOTE | 2021-06-03 03:59 | NUR ---
PT REQUESTED AND RECIVED PAIN MEDS AND NOW APPEARS TO BE RESTING. PT LYING IN BED, EYES CLOSED, APPEARS TO BE RESTING. BREATHING IS EVEN, UNLABORED. NO APPARENT SIGNS OF DISTRESS. CALL LIGHT IS IN REACH.
--- NOTE | 2021-06-03 04:00 | NUR ---
PT IS AAO X 4, ON RA. REPORTED PAIN IN THROAT, GAVE TESSELON, TYLENOL, UTRAM X 2. PT HAS DRAIN TO R PECTORAL, DRESSING IS C/D/I, DRAINING THIN MEDIUM RED LIQUID A MODERATE AMOUNT. BS WAS 361.
--- NOTE | 2021-06-03 05:26 | NUR ---
PT LYING IN BED, WAKES EASILY TO VERBAL STIMULI. REPORTS THAT THE ULTRAM HELPED A LITTLE. STATES HE STILL HAS PAIN BUT DOES NOT WANT THE TYLENOL, PT AWARE IT IS TOO SOON FOR THE ULTRAM. DENIES NEED FOR ANYTHING ELSE AT THIS TIME. NO OTHER APPARENT SIGNS OF DISTRESS. CALL LIGHT IS IN REACH. NO OTHER CHANGES THIS SHIFT.
[2021-06-03 05:47] LABS: BASOPHILS ABSOLUTE AUTO 0.01 K/mm3 (0.00-0.23); BASOPHILS PERCENT AUTO 0 % (0-2); EOSINOPHILS ABSOLUTE AUTO 0.09 K/mm3 (0.00-0.68); EOSINOPHILS PERCENT AUTO 1 % (0-6); Hematocrit 25.4 % (37.0-53.0); Hemoglobin 7.9 g/dL (13.5-17.5); IMMATURE GRAN ABSOLUTE AUTO 0.04 K/mm3 (0.00-0.10); IMMATURE GRAN PERCENT AUTO 1 % (0-1); LYMPHOCYTES ABSOLUTE AUTO 1.42 K/mm3 (0.84-5.20); LYMPHOCYTES PERCENT AUTO 21 % (21-46); MONOCYTES ABSOLUTE AUTO 0.38 K/mm3 (0.16-1.47); MONOCYTES PERCENT AUTO 6 % (4-13); Mean Corpuscular HGB 31.9 pg (26.0-34.0); Mean Corpuscular HGB Conc 31.1 g/dL (31.5-36.5); Mean Corpuscular Volume 102 fL (80-100); NEUTROPHILS ABSOLUTE AUTO 4.74 K/mm3 (1.96-9.15); NEUTROPHILS PERCENT AUTO 71 % (41-73); NRBC ABSOLUTE 0.02 K/mm3 (0.00-0.02); NRBC Auto 0.3 /100 WBC (0.0-0.2); Platelet Count 302 K/mm3 (150-400); RDW Coefficient Variation 15.5 % (11.7-14.2); RDW Standard Deviation 56.8 fL (35.1-46.3); Red Blood Cell Count 2.48 M/mm3 (4.30-5.90); White Blood Cell Count 6.68 K/mm3 (4.00-11.30)
[2021-06-03 06:22] LABS: Albumin, Blood 1.7 g/dL (3.4-5.0); Albumin/Globulin Ratio 0.3 (0.8-1.8); Bilirubin, Total 0.4 mg/dL (0.1-1.0); Bun/Creatinine Ratio 13.2 (12.0-20.0); Calcium, Blood 8.1 mg/dL (8.5-10.1); Creatinine, Blood 1.21 mg/dL (0.60-1.20); Globulin, Blood 6.2 g/dL (2.2-4.0); Potassium, Blood 4.2 mmol/L (3.5-5.5); Total Protein, Blood 7.9 g/dL (6.4-8.2)
[2021-06-03] MEDS ORDERED: GABA300 PO ×2 (14:36)
[2021-06-03] MEDS ORDERED: AMLO10 PO ×2 (14:37)
[2021-06-03] MEDS ORDERED: SULTRIDS PO ×2 (14:37)
[2021-06-03] MEDS ORDERED: FURO20 PO ×2 (14:39)
[2021-06-03] MEDS ORDERED: GEMF600 PO ×2 (15:22)
[2021-06-03] MEDS ORDERED: XARELTO20 MG PO ×2 (15:22)
[2021-06-03] MEDS ORDERED: NORT10 PO ×2 (15:22)
[2021-06-03] MEDS ORDERED: HUMALOG100 UNIT/1 ×2 (15:23)
--- NOTE | 2021-06-03 16:00 | NUR ---
Per Dr. Juaquin Gunn discharge appropriate: Patient does not oppose discharge. Date of discharge: 06/03/2021 Date of admission: 05/27/2021 Provisional diagnosis at time of admission: Abscess of pectoral region (Right) Final Diagnosis at time of discharge: MRSA culture positive Location: Patient is discharged to residence Transportation provided by: Family member/Jany daughter DME Ordered: None Follow-ups needed: Follow-up appointment scheduled for 06/06/21 @ 0740 with Sal WHITE; transportation arranged through [facility]. Patient notified and given information on appointment date and transportation. Provider: BERT Wheat When: WITHIN 1 WEEK Specialty: N/A When: N/A Comment: Patient also given information on senior services and [facility] for future transportation needs when daughter Jany is unavailable. Patient has support network (daughter Jany and Son-in-law Eric). No barriers to discharge. Confirmed numbers: Patient: [phone] Daughter: [phone]
--- NOTE | 2021-06-03 16:45 | NUR ---
DISCHARGE INSTRUCTIONS COMPLETED AND DISCUSSED WITH PT EXPRESSING UNDERSTANDING. SCRIPTS FAXED TO [facility]. AWARE HE IS TO BE PICKED UP FOR MD APPT ON WEDNESDAY. TO [facility] VIA W/C WITH DAUGHTER PICKING HIM UP.
[2021-06-11] MEDS ORDERED: FERSU300 PO (11:48)
[2021-06-11] MEDS ORDERED: SPIR25 PO (11:49)
[2021-06-11] MEDS ORDERED: Vancomycin HCl500 MG IV (11:53)
== END 2021-06-03 16:40 | disposition home or self-care (01) | DRG 872 ==
LOC: ER 18:00 → MEDS 05-27 02:11
PROVIDERS: Family Medicine; Internal Medicine; Physician Assistant; Student in an Organized Health Care Education/Training Program; ADMIT Internal Medicine
DX: A41.02 Sepsis due to Methicillin resistant Staphylococcus aureus (principal); N17.9 Acute kidney failure, unspecified; L02.213 Cutaneous abscess of chest wall; K21.9 Gastro-esophageal reflux disease without esophagitis; E78.5 Hyperlipidemia, unspecified; I10 Essential (primary) hypertension; G40.909 Epilepsy, unspecified, not intractable, without status epilepticus; Z98.890 Other specified postprocedural states; E11.9 Type 2 diabetes mellitus without complications; Z79.899 Other long term (current) drug therapy; Z87.891 Personal history of nicotine dependence; Z79.4 Long term (current) use of insulin; Z88.1 Allergy status to other antibiotic agents; Z88.8 Allergy status to other drugs, medicaments and biological substances; R65.20 Severe sepsis without septic shock
CPT/HCPCS: 10030; 36415; 71260; 76705; 80048; 80053; 80202; 81001; 82274; 82550; 82553; 82565; 82947; 83605; 83986; 84157; 84484; 85014; 85018; 85025; 85049; 85520; 85610; 85730; 87040; 87070; 87075; 87077; 87147; 87186; 87205; 89051; 90686; 92526; 92610; 93005; 93010; 94760; 96361; 96365-59; 96366-59; 96367-59; 99285-25; A9270; C1751; J1644; J1815; J1885; J1940; J2060; J2543; J3370; J7030; J7050; Q9967

== ENCOUNTER 2021-06-04 08:33 | Inpatient (IN) | payer MEDICARE ==
[~2021-06-04] VITALS: Ht 175.3 cm; Wt 93.8 kg
[~2021-06-04 08:33] MED LIST changes: +FURO20 PO; +GABA300 PO; +HUMALOG100 UNIT/1; +LOSARTAN POTASS25 M2 PO; +NORT10 PO; +SULTRIDS PO
[2021-06-04 10:16] LABS: BASOPHILS ABSOLUTE AUTO 0.01 K/mm3 (0.00-0.23); BASOPHILS PERCENT AUTO 0 % (0-2); EOSINOPHILS ABSOLUTE AUTO 0.09 K/mm3 (0.00-0.68); EOSINOPHILS PERCENT AUTO 1 % (0-6); IMMATURE GRAN ABSOLUTE AUTO 0.06 K/mm3 (0.00-0.10); IMMATURE GRAN PERCENT AUTO 1 % (0-1); LYMPHOCYTES ABSOLUTE AUTO 1.32 K/mm3 (0.84-5.20); LYMPHOCYTES PERCENT AUTO 16 % (21-46); MONOCYTES ABSOLUTE AUTO 0.52 K/mm3 (0.16-1.47); MONOCYTES PERCENT AUTO 6 % (4-13); Mean Corpuscular HGB 31.4 pg (26.0-34.0); Mean Corpuscular HGB Conc 30.3 g/dL (31.5-36.5); Mean Corpuscular Volume 104 fL (80-100); Mean Platelet Volume 9.8 fL (9.1-12.4); NEUTROPHILS ABSOLUTE AUTO 6.44 K/mm3 (1.96-9.15); NEUTROPHILS PERCENT AUTO 76 % (41-73); Platelet Count 333 K/mm3 (150-400); RDW Coefficient Variation 15.8 % (11.7-14.2); RDW Standard Deviation 58.3 fL (35.1-46.3); Red Blood Cell Count 1.69 M/mm3 (4.30-5.90); White Blood Cell Count 8.44 K/mm3 (4.00-11.30)
[2021-06-04 10:21] LABS: Alanine Aminotransfer (ALT/SGP 23 U/L (12-78); Albumin, Blood 1.7 g/dL (3.4-5.0); Albumin/Globulin Ratio 0.3 (0.8-1.8); Alk Phos 128 U/L (50-136); Anion Gap 6 mmol/L (6-16); Aspartate Aminotrans (AST/SGOT 32 U/L (12-37); Bilirubin, Total 0.4 mg/dL (0.1-1.0); Blood Urea Nitrogen 17 mg/dL (8-24); Bun/Creatinine Ratio 14.7 (12.0-20.0); CO2, Blood 26 mmol/L (21-32); Calcium, Blood 7.9 mg/dL (8.5-10.1); Chloride, Blood 102 mmol/L (98-108); Creatinine, Blood 1.16 mg/dL (0.60-1.20); Globulin, Blood 6.3 g/dL (2.2-4.0); Glomerular Filtration Rate >60 (60-); Glucose, Blood 331 mg/dL (70-99); Potassium, Blood 3.9 mmol/L (3.5-5.5); Sodium, Blood 134 mmol/L (136-145)
[2021-06-04 10:54] LABS: Hematocrit 17.5 % (37.0-53.0)
[2021-06-04 10:55] LABS: Hemoglobin 5.3 g/dL (13.5-17.5)
--- NOTE | 2021-06-04 11:00 | NUR ---
NOTIFIED H&H 5.3 AND 17.5. B.P. 186/81 AND 113. STAT H&H. CAN ORDER LATRICIA FOR NOW
[2021-06-04 11:36] LABS: Hematocrit 23.2 % (37.0-53.0); Hemoglobin 7.4 g/dL (13.5-17.5)
--- NOTE | 2021-06-04 17:01 | NUR ---
DIRECT ADMIT. ALERT. ORIENTED. INDEPENDENT IN ROOM. WAS D'C YESTERDAY. HAS MRSA IN WOUND AND IN BLOOD AND MAY NEED EXTENDED AMOUNT OF TIME FOR ANTIBIOTICS. POWERGLIDE IN. COOPERATIVE. PLEASANT. ABLE TO MAKE NEEDS KNOWN. WCTM
--- NOTE | 2021-06-04 17:15 | NUR ---
PATIENT DAUGHTER, KEITH, UPDATED ON CONDITION.
[2021-06-05 05:19] LABS: BASOPHILS ABSOLUTE AUTO 0.01 K/mm3 (0.00-0.23); BASOPHILS PERCENT AUTO 0 % (0-2); EOSINOPHILS ABSOLUTE AUTO 0.16 K/mm3 (0.00-0.68); EOSINOPHILS PERCENT AUTO 3 % (0-6); Hematocrit 25.2 % (37.0-53.0); Hemoglobin 7.7 g/dL (13.5-17.5); IMMATURE GRAN ABSOLUTE AUTO 0.02 K/mm3 (0.00-0.10); IMMATURE GRAN PERCENT AUTO 0 % (0-1); LYMPHOCYTES ABSOLUTE AUTO 1.27 K/mm3 (0.84-5.20); LYMPHOCYTES PERCENT AUTO 22 % (21-46); MONOCYTES ABSOLUTE AUTO 0.41 K/mm3 (0.16-1.47); MONOCYTES PERCENT AUTO 7 % (4-13); Mean Corpuscular HGB 31.4 pg (26.0-34.0); Mean Corpuscular HGB Conc 30.6 g/dL (31.5-36.5); Mean Corpuscular Volume 103 fL (80-100); Mean Platelet Volume 9.6 fL (9.1-12.4); NEUTROPHILS ABSOLUTE AUTO 4.04 K/mm3 (1.96-9.15); NEUTROPHILS PERCENT AUTO 68 % (41-73); Platelet Count 254 K/mm3 (150-400); RDW Standard Deviation 59.9 fL (35.1-46.3); Red Blood Cell Count 2.45 M/mm3 (4.30-5.90); White Blood Cell Count 5.91 K/mm3 (4.00-11.30)
[2021-06-05 05:56] LABS: Albumin, Blood 1.7 g/dL (3.4-5.0); Albumin/Globulin Ratio 0.3 (0.8-1.8); Bilirubin, Total 0.5 mg/dL (0.1-1.0); Bun/Creatinine Ratio 13.2 (12.0-20.0); Creatinine, Blood 1.21 mg/dL (0.60-1.20); Globulin, Blood 5.8 g/dL (2.2-4.0); Potassium, Blood 4.1 mmol/L (3.5-5.5); Total Protein, Blood 7.5 g/dL (6.4-8.2)
--- NOTE | 2021-06-05 07:12 | NUR ---
SHIFT SUMMARY: PATIENT REORTED PAIN IN R SHOULDER/AXILA AREA. DR VENTURA WAS NOTIFIED AND ORDER FOR NORCO 1 TAB PRN Q6H WAS OBTAINED AND GIVEN WITH GOOD EFFECT. THIS AM PATIENT WAS STANDING AT THE BEDSIDE VOIDING AND HAD AN 11 BEAT RUN OF SVT. PATIENT WAS SOB BUT OTHERWISE ASYMPTOMATIC. DR SNELL WAS NOTIFIED AND ORDER TO ADD A MAG LEVEL TO AM LABS WAS OBTAINED. PATIENT IS NOT RESTING IN BED WITH NO COMPLAINTS, TELI IS IN PLACE.
--- NOTE | 2021-06-05 17:31 | NUR ---
alert. oriented. swelling ble about the same as yesterday. powerglide patent. tele on and sr at 90. medicated for headache and back pain. independent in room. pleasant. able to make needs known. tm
[2021-06-05 23:39] LABS: Vancomycin, Trough 12.7 ug/mL (5.0-10.0)
--- NOTE | 2021-06-06 02:08 | NUR ---
CARDIOLOGY: PATIENT HAS BEEN SINUS TACH ALL SHIFT. 110-120'S. DR SNELL IS NOTIFIED. ORDER TO GIVEN NS @ 75ML/HR X1 LITER IS OBTAINED.
--- NOTE | 2021-06-06 05:39 | NUR ---
SHIFT SUMMARY: BP IS ELEVATED, SCHEDULED NORVASC WAS GIVEN WITH POOR EFFECT. HYPERTENTION PERSISTS, PRN HYDRALAZINE WAS GIVEN WITH POOR EFFECT. PATIENT WAS ASYMPTOMATIC. POOR SLEEP THIS SHIFT AND PATIENT IS NOW REPORTING A SLIGHT HEAD ACHE NO BLURRED VISION, TYLENOL IS REQUESTED.
[2021-06-06 06:24] LABS: BASOPHILS ABSOLUTE AUTO 0.01 K/mm3 (0.00-0.23); BASOPHILS PERCENT AUTO 0 % (0-2); EOSINOPHILS PERCENT AUTO 1 % (0-6); Hematocrit 24.2 % (37.0-53.0); Hemoglobin 7.6 g/dL (13.5-17.5); IMMATURE GRAN ABSOLUTE AUTO 0.04 K/mm3 (0.00-0.10); IMMATURE GRAN PERCENT AUTO 1 % (0-1); LYMPHOCYTES ABSOLUTE AUTO 0.97 K/mm3 (0.84-5.20); LYMPHOCYTES PERCENT AUTO 14 % (21-46); MONOCYTES PERCENT AUTO 7 % (4-13); Mean Corpuscular HGB 31.9 pg (26.0-34.0); Mean Corpuscular HGB Conc 31.4 g/dL (31.5-36.5); Mean Corpuscular Volume 102 fL (80-100); Mean Platelet Volume 9.8 fL (9.1-12.4); NEUTROPHILS ABSOLUTE AUTO 5.45 K/mm3 (1.96-9.15); NEUTROPHILS PERCENT AUTO 77 % (41-73); Platelet Count 264 K/mm3 (150-400); RDW Coefficient Variation 16.1 % (11.7-14.2); RDW Standard Deviation 58.9 fL (35.1-46.3); Red Blood Cell Count 2.38 M/mm3 (4.30-5.90); White Blood Cell Count 7.07 K/mm3 (4.00-11.30)
--- NOTE | 2021-06-06 06:26 | NUR ---
SHIFT SUMMARY: PATIENT HAS AN ORDER FOR A CULLEN, EDUCATION WAS GIVEN ON RISK OF INFECTION. PATIENT DECLINNED CULLEN PLACEMENT. VOIDING IN THE URINAL WHILE STANDING AT THE BEDSIDE WITHOUT DIFFICULTY. NORCO WAS GIVEN X1 FOR BACK PAIN WHICH WAS EFFECTIVE. HEART RATE HAS BEEN TACHYCARDIC THIS SHIFT 101-122. RATE IS 101 AT THIS TIME AFTER NS @ 75ML/HR X 1 LITER WAS STARTED. DRAIN PUT OUT 20 MLS OF A MILKY BROWN FLUID.
[2021-06-06 06:47] LABS: Albumin, Blood 1.7 g/dL (3.4-5.0); Albumin/Globulin Ratio 0.3 (0.8-1.8); Bilirubin, Total 0.5 mg/dL (0.1-1.0); Bun/Creatinine Ratio 15.9 (12.0-20.0); Calcium, Blood 8.3 mg/dL (8.5-10.1); Creatinine, Blood 1.26 mg/dL (0.60-1.20); Globulin, Blood 6.3 g/dL (2.2-4.0); Potassium, Blood 4.2 mmol/L (3.5-5.5)
--- NOTE | 2021-06-06 16:23 | NUR ---
I visited the patient in his [facility] room 311 earlier this morning to coordinate the discharge plan. Patient is adamant on not discharging to [facility] for two weeks to receive the IV antibiotics. He also has declined on coming to the infusion clinic here at [facility] to receive the IV antibiotics. Patient is adamant on discharging home early next week and receiving those infusions every 18 hours with the assistance of his neighbor, Topher, . I just called and spoke to Topher. He said he would be willing to help Scotty, but has several questions and concerns. I also informed him that we would like him to come to [facility] most likely Wednesday, to be educated by the patient's nurse on how to administer the antibiotic. I suggested the patient's nurse give Topher a call to answer all of his preliminary questions to start with. Topher and patient's nurse are in agreement with this. I have also faxed the referral to [facility] to request the iv antibiotics for two weeks. I asked the patient and his daughter if there was a preference on home health agency. There is no preference. I have referred him to [facility]. I spoke with Suly with [facility] earlier regarding the referral, she informed me that a nurse would be available 23/11 if the patient or patient's neighbor had questions or needed assistance at any time.
--- NOTE | 2021-06-06 16:51 | NUR ---
SHIFT SUMMARY PATIENT IS ALERT AND ORIENTED X4. PATIENT IS INDEPENDENT IN ROOM. [facility] HAS A POWERGLIDE. PATIENT HAS NOT COMPLAINED OF PAIN, NAUSEA, SOB OR VOMITTING THIS SHIFT. VITAL SIGNS REVIEWED. PATIENT HAS HAD HIGHER BLOOD PRESSURES AND NOTIFIED DR. RUSSELL ADDED MEDICATIONS AFTER NOTIFICATION. NO ACUTE EVENTS THIS SHIFT. BED IN LOCKED AND LOWEST POSITION. CALL LIGHT IN PLACE. WILL MONITOR UNTIL SHIFT CHANGE.
[2021-06-07 06:02] LABS: BASOPHILS PERCENT AUTO 0 % (0-2); EOSINOPHILS ABSOLUTE AUTO 0.11 K/mm3 (0.00-0.68); EOSINOPHILS PERCENT AUTO 2 % (0-6); Hematocrit 23.8 % (37.0-53.0); Hemoglobin 7.5 g/dL (13.5-17.5); IMMATURE GRAN ABSOLUTE AUTO 0.02 K/mm3 (0.00-0.10); IMMATURE GRAN PERCENT AUTO 0 % (0-1); LYMPHOCYTES ABSOLUTE AUTO 1.17 K/mm3 (0.84-5.20); LYMPHOCYTES PERCENT AUTO 20 % (21-46); MONOCYTES ABSOLUTE AUTO 0.47 K/mm3 (0.16-1.47); MONOCYTES PERCENT AUTO 8 % (4-13); Mean Corpuscular HGB 31.8 pg (26.0-34.0); Mean Corpuscular HGB Conc 31.5 g/dL (31.5-36.5); Mean Corpuscular Volume 101 fL (80-100); Mean Platelet Volume 9.6 fL (9.1-12.4); NEUTROPHILS ABSOLUTE AUTO 4.03 K/mm3 (1.96-9.15); NEUTROPHILS PERCENT AUTO 70 % (41-73); Platelet Count 230 K/mm3 (150-400); RDW Coefficient Variation 15.9 % (11.7-14.2); Red Blood Cell Count 2.36 M/mm3 (4.30-5.90)
[2021-06-07 06:21] LABS: Albumin, Blood 1.7 g/dL (3.4-5.0); Albumin/Globulin Ratio 0.3 (0.8-1.8); Bilirubin, Total 0.6 mg/dL (0.1-1.0); Bun/Creatinine Ratio 18.7 (12.0-20.0); Creatinine, Blood 1.23 mg/dL (0.60-1.20); Globulin, Blood 6.4 g/dL (2.2-4.0); Total Protein, Blood 8.1 g/dL (6.4-8.2)
--- NOTE | 2021-06-07 08:05 | NUR ---
PATIENT WAS DISCHARGED ON Jun AFTER 7 DAYS WITH MRSA ABSCESS TO RIGHT CHEST. HAD I&D WITH DRAIN PLACEMENT. WAS CALLED TO COME BACK ON Jun FOR POSITIVE MRSA BLOOD CULTURES. AT THIS TIME, CULTURES ARE NEGATIVE AT 2 DAYS OF B 4. TTE NEGATIVE FOR ENDOCARDITIS. HGB CURRENTLY AT 7.5 .
[2021-06-07 12:32] LABS: Vancomycin, Trough 12.8 ug/mL (5.0-10.0)
--- NOTE | 2021-06-07 17:23 | NUR ---
SHIFT SUMMARY PATIENT IS ALERT AND ORIENTATED X4. PATIENT IS INDEPENDENT IN ROOM. PATIENT HAS HAD ABCESS DRAIN REMOVED TODAY BY . PATIENT HAS HAD SCHEDULED NORCO FOR PAIN TODAY Q6. PATIENT HAS HAD NO COMPLAINTS OF NAUSEA, SOB OR VOMITTING THIS SHIFT. PATIENT HAS HAD NO ACUTE EVENTS THIS SHIFT. VITAL SIGNS REVIEWED. BED IN LOCKED AND LOWEST POSITION. CALL LIGHT IN PLACE. WILL MONITOR UNTIL SHIFT CHANGE.
[2021-06-08 05:19] LABS: BASOPHILS ABSOLUTE AUTO 0.01 K/mm3 (0.00-0.23); BASOPHILS PERCENT AUTO 0 % (0-2); EOSINOPHILS ABSOLUTE AUTO 0.14 K/mm3 (0.00-0.68); EOSINOPHILS PERCENT AUTO 2 % (0-6); Hematocrit 24.5 % (37.0-53.0); Hemoglobin 7.7 g/dL (13.5-17.5); IMMATURE GRAN ABSOLUTE AUTO 0.04 K/mm3 (0.00-0.10); IMMATURE GRAN PERCENT AUTO 1 % (0-1); LYMPHOCYTES ABSOLUTE AUTO 1.34 K/mm3 (0.84-5.20); LYMPHOCYTES PERCENT AUTO 22 % (21-46); MONOCYTES ABSOLUTE AUTO 0.51 K/mm3 (0.16-1.47); MONOCYTES PERCENT AUTO 8 % (4-13); Mean Corpuscular HGB 31.6 pg (26.0-34.0); Mean Corpuscular HGB Conc 31.4 g/dL (31.5-36.5); Mean Corpuscular Volume 100 fL (80-100); Mean Platelet Volume 9.4 fL (9.1-12.4); NEUTROPHILS ABSOLUTE AUTO 4.09 K/mm3 (1.96-9.15); NEUTROPHILS PERCENT AUTO 67 % (41-73); Platelet Count 248 K/mm3 (150-400); RDW Standard Deviation 58.5 fL (35.1-46.3); Red Blood Cell Count 2.44 M/mm3 (4.30-5.90); White Blood Cell Count 6.13 K/mm3 (4.00-11.30)
[2021-06-08 06:01] LABS: Albumin, Blood 1.7 g/dL (3.4-5.0); Albumin/Globulin Ratio 0.2 (0.8-1.8); Bilirubin, Total 0.6 mg/dL (0.1-1.0); Bun/Creatinine Ratio 19.8 (12.0-20.0); Calcium, Blood 8.4 mg/dL (8.5-10.1); Creatinine, Blood 1.31 mg/dL (0.60-1.20); Globulin, Blood 6.8 g/dL (2.2-4.0); Total Protein, Blood 8.5 g/dL (6.4-8.2)
--- NOTE | 2021-06-08 06:40 | NUR ---
PATIENT WAS ABLE TO TAKE A SHOWER THIS EVENING. ONLY COMPLAINED OF PAIN ONCE DURING THE SHIFT, BUT IT WAS A 10/10 AGAIN. HGB IS AT A 7.7 THIS MORNING. DRAIN WAS TAKEN OUT 06/07/21 IN THE MORNING. PATIENT STATES HE FEELS MUCH BETTER TODAY HE SLPET A VAST MAJORITY OF THE SHIFT. EVENTUAL PLAN IS TO DC HOME WITH 2 WEEKS OF IV ABX, WHICH HIS FRIEND WILL ADMINISTER FOR HIM.
--- NOTE | 2021-06-08 15:46 | NUR ---
SHIFT SUMMARY PATIENT IS ALERT AND ORIENTED X4. PATIENT HAS HAD NO ACUTE EVENTS THIS SHIFT. CGB WERE ELEVATED OVERNIGHT. DR WASHINGTON ADDED ADDITIONAL INSULIN TO MEDICATIONS. PATIENT HAS HAD DRAIN BANDAGE REPLACED THIS SHIFT. VITAL SIGNS REVIEWED. PATIENT HAS HAD NO COMPLAINTS OF SOB, NAUSEA OR VOMMITING THIS SHIFT. PATIENT HAS HAD A LOW GRADE FEVER THIS SHIFT, GIVEN TYLENOL PER EMAR. BED IN LOWEST AND LOCKED POSITION. CALL LIGHT IN PLACE. WILL MONITOR UNTIL SHIFT CHANGE.
--- NOTE | 2021-06-09 06:22 | NUR ---
PATIENT HAS ONLY HAD COMPLAINTS OF PAIN ONCE PER SHIFT, WHICH IS DOWN FROM 3 THE LAST FEW NIGHTS. HE DID MENTION HE FELT HIS KNEES AND BACK WERE "STARTING TO SWELL" AROUND THIS MORNING, WHICH IS WHAT LEF HIM TO ASKING FOR PAIN PILL. BLOOD CULTURES ARE NEGATIVE AFTER 4 DAYS. KAY WAS NEGATIVE FOR ENDOCARDITIS. PLAN IS FOR HIM TO EVENTUALLY DC HOME WITH VANCOMYCIN THROUGH 06/18/21. HIS NEIGHBOR IS GOING TO COME TO THE HOSPITAL AND LEARND HOW TO ADMINISTER MEDICATIONS FOR HIM.
[2021-06-09 09:55] LABS: BASOPHILS PERCENT AUTO 0 % (0-2); EOSINOPHILS ABSOLUTE AUTO 0.16 K/mm3 (0.00-0.68); EOSINOPHILS PERCENT AUTO 3 % (0-6); Hematocrit 25.3 % (37.0-53.0); Hemoglobin 7.7 g/dL (13.5-17.5); IMMATURE GRAN ABSOLUTE AUTO 0.03 K/mm3 (0.00-0.10); IMMATURE GRAN PERCENT AUTO 1 % (0-1); LYMPHOCYTES ABSOLUTE AUTO 1.18 K/mm3 (0.84-5.20); LYMPHOCYTES PERCENT AUTO 20 % (21-46); MONOCYTES ABSOLUTE AUTO 0.44 K/mm3 (0.16-1.47); MONOCYTES PERCENT AUTO 8 % (4-13); Mean Corpuscular HGB 31.3 pg (26.0-34.0); Mean Corpuscular HGB Conc 30.4 g/dL (31.5-36.5); Mean Corpuscular Volume 103 fL (80-100); NEUTROPHILS ABSOLUTE AUTO 4.09 K/mm3 (1.96-9.15); NEUTROPHILS PERCENT AUTO 69 % (41-73); Platelet Count 248 K/mm3 (150-400); RDW Coefficient Variation 16.3 % (11.7-14.2); RDW Standard Deviation 59.9 fL (35.1-46.3); Red Blood Cell Count 2.46 M/mm3 (4.30-5.90)
[2021-06-09 10:08] LABS: Albumin, Blood 1.8 g/dL (3.4-5.0); Anion Gap 6 mmol/L (6-16); Blood Urea Nitrogen 22 mg/dL (8-24); Bun/Creatinine Ratio 17.3 (12.0-20.0); CO2, Blood 28 mmol/L (21-32); Calcium, Blood 8.5 mg/dL (8.5-10.1); Chloride, Blood 99 mmol/L (98-108); Creatinine, Blood 1.27 mg/dL (0.60-1.20); Glomerular Filtration Rate 57 (60-); Glucose, Blood 182 mg/dL (70-99); Phosphorus, Blood 3.1 mg/dL (2.5-4.9); Potassium, Blood 3.9 mmol/L (3.5-5.5); Sodium, Blood 133 mmol/L (136-145)
--- NOTE | 2021-06-09 13:22 | NUR ---
I called the patient's neighbor, Topher, to follow-up with our conversation from Wednesday. Requested a call back.
[2021-06-09 18:35] LABS: Vancomycin, Trough 18.4 ug/mL (5.0-10.0)
--- NOTE | 2021-06-09 18:59 | NUR ---
SHIFT SUMMARY PT INDEPENDENT IN ROOM. HAS DENIED PAIN OR NAUSEA BUT DOES REPORT SORENESS TO R CHEST WALL. REPORTS FEELING QUITE SWOLLEN AND IV LASIX GIVEN. DENIES SOB BUT DOES APPEAR TO BE BREATHING HARD AT TIMES. THIGH HIGH TEDS IN PLACE. TRANSITIONED INTO AFIB AT 1834 AND HEART RATE UP TO 140'S. WAS USING URINAL AT THE TIME. DROPPED TO 120'S. PT REPORTS NOT FEELING ANY DIFFERENT. WILL REPORT TO ONCOMING SHIFT.
--- NOTE | 2021-06-10 04:38 | NUR ---
PATIENT ALERT AND ORIENTED. ABLE TO MAKE NEEDS KNOWN. NO COMPLAINTS OF PAIN OR DISCOMFORT. CONTINUES ON IV ABX WITHOUT S/SX OF ADVERSE REACTIONS NOTED OR REPORTED. VITALS STABLE. PATIENT DESATED INTO THE HIGH 80s AT THE START OF SHIFT AND 2L O2 NC PLACED TO MAINTAIN O2 >90%. HAD CONVERTED TO AFIB JUST PRIOR TO THIS SHIFT STARTING BUT CONVERTED BACK TO NSR AFTER GETTING IV METOPROLOL PER EMAR. PATIENT RESTING IN ROOM AT THIS TIME. CALL LIGHT WITHIN REACH.
[2021-06-10 05:00] LABS: IMMATURE RETIC FRACTION 30.4 % (2.3-16.0); RETIC HGB EQUIVALENT 33.4 pg (28.20-36.60); RETICULOCYTE ABSOLUTE 0.1133 M/mm3 (0.0200-0.1100); RETICULOCYTE COUNT PERCENT 4.78 % (0.50-2.50)
[2021-06-10 08:51] LABS: BASOPHILS PERCENT AUTO 0 % (0-2); EOSINOPHILS ABSOLUTE AUTO 0.19 K/mm3 (0.00-0.68); EOSINOPHILS PERCENT AUTO 3 % (0-6); Hematocrit 24.9 % (37.0-53.0); Hemoglobin 7.8 g/dL (13.5-17.5); IMMATURE GRAN ABSOLUTE AUTO 0.03 K/mm3 (0.00-0.10); IMMATURE GRAN PERCENT AUTO 1 % (0-1); LYMPHOCYTES ABSOLUTE AUTO 1.24 K/mm3 (0.84-5.20); LYMPHOCYTES PERCENT AUTO 22 % (21-46); MONOCYTES ABSOLUTE AUTO 0.46 K/mm3 (0.16-1.47); MONOCYTES PERCENT AUTO 8 % (4-13); Mean Corpuscular HGB 31.6 pg (26.0-34.0); Mean Corpuscular HGB Conc 31.3 g/dL (31.5-36.5); Mean Corpuscular Volume 101 fL (80-100); Mean Platelet Volume 9.5 fL (9.1-12.4); NEUTROPHILS ABSOLUTE AUTO 3.76 K/mm3 (1.96-9.15); NEUTROPHILS PERCENT AUTO 66 % (41-73); Platelet Count 246 K/mm3 (150-400); RDW Coefficient Variation 16.2 % (11.7-14.2); RDW Standard Deviation 58.5 fL (35.1-46.3); Red Blood Cell Count 2.47 M/mm3 (4.30-5.90); White Blood Cell Count 5.68 K/mm3 (4.00-11.30)
[2021-06-10 09:22] LABS: Albumin, Blood 1.8 g/dL (3.4-5.0); Anion Gap 5 mmol/L (6-16); Blood Urea Nitrogen 23 mg/dL (8-24); Bun/Creatinine Ratio 17.2 (12.0-20.0); CO2, Blood 31 mmol/L (21-32); Calcium, Blood 8.7 mg/dL (8.5-10.1); Chloride, Blood 98 mmol/L (98-108); Creatinine, Blood 1.34 mg/dL (0.60-1.20); Glomerular Filtration Rate 53 (60-); Glucose, Blood 152 mg/dL (70-99); Phosphorus, Blood 3.6 mg/dL (2.5-4.9); Potassium, Blood 3.8 mmol/L (3.5-5.5); Sodium, Blood 134 mmol/L (136-145)
--- NOTE | 2021-06-10 14:46 | NUR ---
I visited the patient in his [facility] room yesterday afternoon and consulted with him regarding the discharge plan. His neighbor has declined to help him administer the IV medication. Patient agreeable to proceed with receiving IV infusions daily at the ATC clinic at [facility]. I submitted the referral to the ATC. Will follow-up with them tomorrow morning. I have also contacted Summer with [facility] to update her of the change in the discharge plan, as well as [facility].
--- NOTE | 2021-06-10 17:16 | NUR ---
SHIFT SUMMARY PT UP INDEPENDENTLY IN ROOM. SHOWER TAKEN TODAY. UP TO RECLINER CHAIR FOR LUNCH. FOLLOWING FLUID RESTRICTION. DID REPORT THIS MORNING THAT HIS LEGS FEEL LESS SWOLLEN TODAY. DENIES RESP DISTRESS. TELE HAS REMAINED IN NSR TODAY WITH NO REPORT OF CONVERTING TO AFIB.
--- NOTE | 2021-06-11 03:47 | NUR ---
PATIENT HAS HAD AN UNEVENTFUL NIGHT WITH NO ACUTE CHANGES TO REPORT OF AT THIS TIME. CONTINUES ON IV ABX WITHOUT S/SX OF ADVERSE REACTIONS NOTED OR REPORTED. VITALS ARE STABLE. CALL LIGHT IS WITHIN REACH.
[2021-06-11 04:46] LABS: Hematocrit 23.8 % (37.0-53.0); Hemoglobin 7.5 g/dL (13.5-17.5); Mean Corpuscular HGB 32.2 pg (26.0-34.0); Mean Corpuscular HGB Conc 31.5 g/dL (31.5-36.5); Mean Corpuscular Volume 102 fL (80-100); Mean Platelet Volume 9.8 fL (9.1-12.4); Platelet Count 240 K/mm3 (150-400); RDW Coefficient Variation 16.4 % (11.7-14.2); RDW Standard Deviation 59.2 fL (35.1-46.3); Red Blood Cell Count 2.33 M/mm3 (4.30-5.90); White Blood Cell Count 5.76 K/mm3 (4.00-11.30)
[2021-06-11 05:10] LABS: Albumin, Blood 1.8 g/dL (3.4-5.0); Anion Gap 5 mmol/L (6-16); Bilirubin, Direct 0.2 mg/dL (0.0-0.3); Bilirubin, Indirect 0.4 mg/dL (0.1-0.7); Bilirubin, Total 0.6 mg/dL (0.1-1.0); Blood Urea Nitrogen 26 mg/dL (8-24); Bun/Creatinine Ratio 19.7 (12.0-20.0); CO2, Blood 31 mmol/L (21-32); Calcium, Blood 8.5 mg/dL (8.5-10.1); Chloride, Blood 99 mmol/L (98-108); Creatinine, Blood 1.32 mg/dL (0.60-1.20); Glomerular Filtration Rate 54 (60-); Glucose, Blood 182 mg/dL (70-99); Lactate Dehydrogenase (Ld),Bld 172 U/L (100-240); Phosphorus, Blood 3.8 mg/dL (2.5-4.9); Potassium, Blood 3.6 mmol/L (3.5-5.5); Sodium, Blood 135 mmol/L (136-145)
[2021-06-11 05:37] LABS: Vancomycin, Trough 20.1 ug/mL (5.0-10.0)
[2021-06-11 06:29] LABS: BAND PERCENT MAN 2 % (0-8); BASOPHILS PERCENT MAN 0 % (0-2); EOSINOPHILS ABSOLUTE MAN 0.23 K/mm3 (0.00-0.68); EOSINOPHILS PERCENT MAN 4 % (0-6); LYMPHOCYTES PERCENT MAN 21 % (21-46); MONOCYTES ABSOLUTE MAN 0.28 K/mm3 (0.16-1.47); MONOCYTES PERCENT MAN 5 % (4-13); NEUTROPHILS ABSOLUTE MAN 4.03 K/mm3 (1.96-9.15); SEG NEUTROPHILS PERCENT MAN 68 % (41-73); TOTAL CELLS COUNTED 100
[2021-06-11] MEDS ORDERED: FERSU300 PO ×2 (11:48)
[2021-06-11] MEDS ORDERED: SPIR25 PO ×2 (11:49)
[2021-06-11] MEDS ORDERED: Vancomycin HCl500 MG IV ×2 (11:53)
--- NOTE | 2021-06-11 16:27 | NUR ---
Per chart review with Dr. White, patient appropriate for discharge. This morning, prior to discharge, I went to the [facility] infusion clinic and scheduled the patient's IV Vancomycin infusions for the next 7 days, starting tomorrow at 10am. Patient to return to the ATC everyday at 10am for 2 hour infusion appointments to be discontinued after 06/18/2021 pending lab results. [facility] and [facility] to coordinate that after discharge. I have arranged transportation scheduled every day with [facility] ($8 round trip charge) for the patient to attend these ATC appointments. 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 to return him to his residence. [facility] cannot provide transportation on Sundays - patient made aware of this. I have also scheduled him a hospital follow up with his PCP Sal Wheat on Wednesday, June 16, 2021 at 08:00 AM. [facility] to pick him up earlier for this appointment and to provide transportation to [facility] for ATC appointment and then to his residence after ATC appointment. Patient, patient's daughter and patient's nurse aware of discharge plan and ATC scheduled infusions. I have also provided the patient information on how to apply for medicaid and to become service connected for possible VA benefits. Patient agreeable with discharge plan, denies barriers to discharge. Patient also informed of where ATC clinic is in [facility].
--- NOTE | 2021-06-11 17:05 | NUR ---
DISCHARGE SUMMARY PT DISCHARGED TO HOME. PT LEFT ROOM VIA WHEELCHAIR WITH RN ESCORT AT 1323. SALENA Mckenzie. COMPLETED DISCHARGE TEACHING WITH PATIENT WHO AGREES TO FOLLOW UP WITH ATC FOR INFUSIONS. ALL QUESTIONS ANSWERED. POWERGLIDE SALINE LOCKED AND WRAPPED. SALENA Mckenzie GAVE INSTRUCTIONS FOR IV CARE. BELONGINGS RETURNED.
== END 2021-06-11 13:23 | disposition home or self-care (01) | DRG 872 ==
LOC: MEDS 08:33
PROVIDERS: Family Medicine; ADMIT Family Medicine
DX: R78.81 Bacteremia (principal); N17.9 Acute kidney failure, unspecified; L02.213 Cutaneous abscess of chest wall; I50.32 Chronic diastolic (congestive) heart failure; G40.909 Epilepsy, unspecified, not intractable, without status epilepticus; K21.9 Gastro-esophageal reflux disease without esophagitis; B95.62 Methicillin resistant Staphylococcus aureus infection as the cause of diseases classified elsewhere; M54.50 Low back pain, unspecified; E11.65 Type 2 diabetes mellitus with hyperglycemia; D53.9 Nutritional anemia, unspecified; I11.0 Hypertensive heart disease with heart failure; E78.00 Pure hypercholesterolemia, unspecified; G43.909 Migraine, unspecified, not intractable, without status migrainosus; Z86.711 Personal history of pulmonary embolism; Z88.1 Allergy status to other antibiotic agents; Z88.8 Allergy status to other drugs, medicaments and biological substances; Z79.4 Long term (current) use of insulin; Z79.01 Long term (current) use of anticoagulants; Z79.899 Other long term (current) drug therapy
CPT/HCPCS: 36415; 71046; 80053; 80069; 80202; 82247; 82248; 82607; 82746; 82947; 83010; 83615; 83735; 83880; 85014; 85018; 85025; 85045; 85060; 87040; 93306; 93971; A9270; J1815; J1940; J3370; J7030; J7050

== ENCOUNTER 2021-06-12 03:20 | Day surgery (SDC) | payer MEDICARE ==
[~2021-06-12 03:20] MED LIST changes: +FERSU300 PO; +SPIR25 PO; +Vancomycin HCl500 MG IV
== END 2021-06-12 11:20 | disposition home or self-care (01) ==
LOC: ATC 03:20
DX: R78.81 Bacteremia (principal)
CPT/HCPCS: 96365; J3370; J7050

== ENCOUNTER 2021-06-13 01:55 | Day surgery (SDC) | payer MEDICARE ==
[2021-06-13 10:48] LABS: Creatinine, Blood 1.21 mg/dL (0.60-1.20); Vancomycin, Trough 17.2 ug/mL (5.0-10.0)
== END 2021-06-13 13:11 | disposition home or self-care (01) ==
LOC: ATC 01:55
PROVIDERS: Family Medicine
DX: R78.81 Bacteremia (principal)
CPT/HCPCS: 80202; 82565; J3370; J7050

== ENCOUNTER 2021-06-14 03:53 | Day surgery (SDC) | payer MEDICARE | END 2021-06-14 11:15 | disposition home or self-care (01) | LOC: ATC 03:53 | DX: R78.81 Bacteremia (principal) | CPT/HCPCS: J3370; J7050 ==

== ENCOUNTER 2021-06-15 03:32 | Day surgery (SDC) | payer MEDICARE | END 2021-06-15 11:12 | disposition home or self-care (01) | LOC: ATC 03:32 | DX: R78.81 Bacteremia (principal) | CPT/HCPCS: J3370; J7050 ==

== ENCOUNTER 2021-06-16 01:54 | Day surgery (SDC) | payer MEDICARE ==
[2021-06-16 10:34] LABS: Vancomycin, Trough 22.5 ug/mL (5.0-10.0)
[2021-06-16 10:40] LABS: Creatinine, Blood 1.43 mg/dL (0.60-1.20)
--- NOTE | 2021-06-16 13:06 | NUR ---
[facility] CALLED AND STATED THAT PT WOULD NOT BE GETTING VANCO TODAY BUT WILL CONTINUE DOSE TOMORROW
--- NOTE | 2021-06-16 13:14 | NUR ---
SEE N/N REGARDING NO VANCO GIVEN TODAY
== END 2021-06-16 10:50 | disposition home or self-care (01) ==
LOC: ATC 01:54
PROVIDERS: Family Medicine
DX: R78.81 Bacteremia (principal)
CPT/HCPCS: 80202; 82565

== ENCOUNTER 2021-06-17 04:21 | Day surgery (SDC) | payer MEDICARE | END 2021-06-17 11:12 | disposition home or self-care (01) | LOC: ATC 04:21 | DX: R78.81 Bacteremia (principal); B95.62 Methicillin resistant Staphylococcus aureus infection as the cause of diseases classified elsewhere; I10 Essential (primary) hypertension; E11.9 Type 2 diabetes mellitus without complications; E78.5 Hyperlipidemia, unspecified; K21.9 Gastro-esophageal reflux disease without esophagitis; Z79.4 Long term (current) use of insulin | CPT/HCPCS: J3370; J7050 ==

== ENCOUNTER → 2022-11-16 | Outpatient (CLI) | payer MEDICARE | LOC: LAB 09:17 → LAB SHORT 09:17 | PROVIDERS: Physician Assistant | DX: J32.9 Chronic sinusitis, unspecified (principal) | CPT/HCPCS: 86695; 86696; 87070; 87077; 87186 ==

== ENCOUNTER 2024-01-26 06:46 | Day surgery (SDC) | payer MEDICARE ==
[~2024-01-26] VITALS: Ht 175.3 cm; Wt 91.5 kg
[~2024-01-26 06:46] MED LIST changes: +Balanced Salt Epinephrine Irrigation Solution 500 mL IR SCH; +Lidocaine HCl/Pf 1% 5 ML VIAL ONE; +Lidocaine HCl/Pf 1% 5 ML VIAL XX SCH; +Moxifloxacin HCL 0.5 MG/0.1 ML 0.4MLSYR RIGHTEYE SCH; +NS 500 ML IV ONE; +PHENYLEPHRINE\\TROPICAMIDE\\TETRACAINE OPHTHALMIC DILATING SOLN RIGHTEYE PRN; +Povidone-Iodine 450 DROP/30 ML Solution ONE; +Povidone-Iodine 450 DROP/30 ML Solution RIGHTEYE SCH; +Tetracaine HCl/Pf 0.5% Opth Soln 4 ml ONE; +Triamcinolone Inj Susp 40 MG / ML 1ML Vial INJ SCH; +Triamcinolone Inj Susp 40 MG / ML 1ML Vial ONE
[2024-01-26] MEDS ORDERED: FentaNYL Citrate 50 MCG/ML 2 ML Injection ONE (06:51)
[2024-01-26] MEDS ORDERED: Midazolam HCl 1MG / ML 2ML Vial ONE (06:52)
[2024-01-26] MEDS ORDERED: NS 1,000 ML IV ONE (07:35)
[2024-01-26 08:28] VITALS: BP 128/63
== END 2024-01-26 08:38 | disposition home or self-care (01) ==
LOC: ORSCSDS 06:46
PROVIDERS: Ophthalmology
PROC: 08RJ3JZ Replacement of Right Lens with Synthetic Substitute, Percutaneous Approach (ICD-10-PCS; principal; 2024-01-26 08:00)
DX: E11.36 Type 2 diabetes mellitus with diabetic cataract (principal); H25.811 Combined forms of age-related cataract, right eye; I10 Essential (primary) hypertension; K21.9 Gastro-esophageal reflux disease without esophagitis; R56.9 Unspecified convulsions; E78.00 Pure hypercholesterolemia, unspecified; Z79.899 Other long term (current) drug therapy
CPT/HCPCS: 82947; J2001; J2250; J3010; J3301; J7040; V2632

== ENCOUNTER → 2025-03-20 | Outpatient (CLI) | payer MEDICARE ==
[~2025-03-20] MED LIST changes: -Balanced Salt Epinephrine Irrigation Solution 500 mL IR SCH; -Lidocaine HCl/Pf 1% 5 ML VIAL ONE; -Lidocaine HCl/Pf 1% 5 ML VIAL XX SCH; -Moxifloxacin HCL 0.5 MG/0.1 ML 0.4MLSYR RIGHTEYE SCH; -NS 500 ML IV ONE; -PHENYLEPHRINE\\TROPICAMIDE\\TETRACAINE OPHTHALMIC DILATING SOLN RIGHTEYE PRN; -Povidone-Iodine 450 DROP/30 ML Solution ONE; -Povidone-Iodine 450 DROP/30 ML Solution RIGHTEYE SCH; -Tetracaine HCl/Pf 0.5% Opth Soln 4 ml ONE; -Triamcinolone Inj Susp 40 MG / ML 1ML Vial INJ SCH; -Triamcinolone Inj Susp 40 MG / ML 1ML Vial ONE
[2025-03-20 11:29] LABS: BASOPHILS ABSOLUTE AUTO 0.04 K/mm3 (0.00-0.23); BASOPHILS PERCENT AUTO 1 % (0-2); EOSINOPHILS ABSOLUTE AUTO 0.14 K/mm3 (0.00-0.68); EOSINOPHILS PERCENT AUTO 3 % (0-6); Hematocrit 40.0 % (37.0-53.0); Hemoglobin 13.9 g/dL (13.5-17.5); IMMATURE GRAN ABSOLUTE AUTO 0.03 K/mm3 (0.00-0.10); IMMATURE GRAN PERCENT AUTO 1 % (0-1); LYMPHOCYTES ABSOLUTE AUTO 1.27 K/mm3 (0.84-5.20); LYMPHOCYTES PERCENT AUTO 25 % (21-46); MONOCYTES ABSOLUTE AUTO 0.40 K/mm3 (0.16-1.47); MONOCYTES PERCENT AUTO 8 % (4-13); Mean Corpuscular HGB Conc 34.8 g/dL (31.5-36.5); Mean Corpuscular Volume 96 fL (80-100); NEUTROPHILS ABSOLUTE AUTO 3.22 K/mm3 (1.96-9.15); NEUTROPHILS PERCENT AUTO 63 % (41-73); NRBC ABSOLUTE 0.00 K/mm3 (0.00-0.02); NRBC Auto 0.0 /100 WBC (0.0-0.2); RDW Coefficient Variation 13.0 % (11.7-14.2); RDW Standard Deviation 45.1 fL (35.1-46.3)
[2025-03-20 11:42] LABS: Alanine Aminotransfer (ALT/SGP 127.0 U/L (12-78); Albumin, Blood 3.7 g/dL (3.4-5.0); Albumin/Globulin Ratio 0.9 (0.8-1.8); Anion Gap 13.0 mmol/L (3-11); Aspartate Aminotrans (AST/SGOT 67.0 U/L (12-37); Bilirubin, Total 0.5 mg/dL (0.1-1.0); Blood Urea Nitrogen 20.0 mg/dL (8-24); CO2, Blood 26.0 mmol/L (21-32); Calcium, Blood 9.0 mg/dL (8.5-10.1); Chloride, Blood 105.0 mmol/L (98-108); Creatinine, Blood 1.54 mg/dL (0.60-1.20); Globulin, Blood 4.2 g/dL (2.2-4.0); Glucose, Blood 207.0 mg/dL (70-99); Platelet Count 135 K/mm3 (150-400); Potassium, Blood 4.2 mmol/L (3.5-5.5); Sodium, Blood 140.0 mmol/L (136-145); Thyroid Stimulating Hormone 2.239 uIU/mL (0.360-4.800); Total Protein, Blood 7.9 g/dL (6.4-8.2)
== END ==
LOC: LAB SHORT 11:13 → LAB 11:13
PROVIDERS: Physician Assistant
DX: R53.83 Other fatigue (principal)
CPT/HCPCS: 80053; 83690; 84443; 85025